=== PATIENT | female | born 2000 | race Caucasian/White ===

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

== ENCOUNTER 2019-03-26 16:07 | Emergency (ER) | payer SELFPAY ==
[~2019-03-26] VITALS: Ht 160 cm; Wt 78.5 kg
[~2019-03-26 16:07] MED LIST changes: +CEPH-264 PO; +ONDA4TAB12 PO
[2019-03-26 16:20] VITALS: BP 133/70
--- NOTE | 2019-03-26 16:36 | PHYS DOC ---
Past Medical History Past Medical History: Anemia, Migraines Past Surgical History: Tonsillectomy Alcohol Use: Rarely Drug Use: Marijuana Adult General Chief Complaint Chief Complaint: TEST HPI HPI Patient is a 19 year old female with upper and lower abdominal pain that comes and goes and is squeezing feeling. Patient states is also a crampy feeling at times. Patient states 2 days ago she vomited once. Patient states she's been eating and drinking as normal. Patient states that she works up she feels that she has heartburn. Patient states she is not taking any medications to help herself feel better. When asked what she ate today she took Motrin which she states before she came in. Patient states that she rates her pain at a 5 out of 10. Patient states she's also been 13 days late on her period. Review of Systems Review of Systems GI: abdominal pain, heart burn, late period, denies nausea, vomiting, bloody stools or diarrhea [] All other systems were reviewed and found to be within normal limits, except as documented in this note. Current Medications Current Medications Current Medications Medications (Trade) Dose Ordered Sig/Raymundo Start Time Stop Time Status Last Admin Dose Admin Famotidine (Pepcid) 20 mg 1X ONCE 03/26/19 16:45 03/26/19 16:46 DC 03/26/19 17:12 20 MG Allergies Allergies Allergies Coded Allergies Type Severity Reaction Last Updated Verified No Known Drug Allergies 05/12/18 No Physical Exam Physical Exam Constitutional: Well developed, well nourished, no acute distress, non-toxic appearance. [] HENT: Normocephalic, atraumatic, bilateral external ears normal, oropharynx moist, no oral exudates, nose normal. [] Eyes: PERRLA, EOMI, conjunctiva normal, no discharge. [] Neck: Normal range of motion, no tenderness, supple, no stridor. [] Cardiovascular:Heart rate regular rhythm, no murmur [] Lungs & Thorax: Bilateral breath sounds clear to auscultation [] Abdomen: Bowel sounds normal, soft, no tenderness, no masses, no pulsatile m asses. [] Skin: Warm, dry, no erythema, no rash. [] Back: No tenderness, no CVA tenderness. [] Extremities: No tenderness, no cyanosis, no clubbing, ROM intact, no edema. [] Neurologic: Alert and oriented X 3, normal motor function, normal sensory function, no focal deficits noted. [] Psychologic: Affect normal, judgement normal, mood normal. Normal Physical Exam[] Current Patient Data Vital Signs Vital Signs Date Time Temp Pulse Resp B/P (MAP) Pulse Ox O2 Delivery O2 Flow Rate FiO2 03/26/19 16:20 98.9 101 16 133/70 (91) 97 Room Air 98.9 Lab Values Laboratory Tests Test 03/26/19 16:08 03/26/19 16:58 Urine Collection Type Unknown Urine Color Yellow Urine Clarity Clear Urine pH 5.0 Urine Specific [place] 1.020 Urine Protein Negative mg/dL (NEG-TRACE) Urine Glucose (UA) Negative mg/dL (NEG) Urine Ketones (Stick) Negative mg/dL (NEG) Urine Blood Negative (NEG) Urine Nitrite Negative (NEG) Urine Bilirubin Negative (NEG) Urine Urobilinogen Dipstick 0.2 mg/dL (0.2 mg/dL) Urine Leukocyte Esterase Negative (NEG) Urine RBC 0 /HPF (0-2) Urine WBC 0 /HPF (0-4) Urine Squamous Epithelial Cells Few /LPF Urine Bacteria Few /HPF (0-FEW) POC Urine HCG, Qualitative Hcg negative (Negative) EKG EKG [] Radiology/Procedures Radiology/Procedures [] Course & Med Decision Making Course & Med Decision Making Abdomen is soft and nontender. Bowel sounds within normal limits. Skin pink warm and dry. Mucous members are moist. Ambulatory with steady gait. Vital signs within normal limits. Alert and oriented. Urinalysis is negative. test is negative. Lungs are clear to auscultation in all lobes. Speaks in full clear sentences.[] She states her stomach is feeling much better after the Pepcid. Patient discharged home with a prescription for Pepcid. Patient is educated his stay a way from fried or spicy foods. Dragon Disclaimer Dragon Disclaimer This electronic medical record was generated, in whole or in part, using a voice recognition dictation system. Departure Departure Impression: Primary Impression: GERD (gastroesophageal reflux disease) Disposition: 01 HOME, SELF-CARE Condition: STABLE Referrals: SAJI WASHINGTON MD (PCP) Patient Instructions: Diet for Gastroesophageal Reflux Disease, Adult Additional Instructions: Follow-up with primary care provider if needed. Drink plenty of fluids. Stay away from fried or spicy foods. Scripts Famotidine (PEPCID) 20 Mg Tablet 20 MG PO BID for 15 Days, #30 TAB Prov: JOON WOODSON APRN 03/26/19 Problem Qualifiers Primary Impression: GERD (gastroesophageal reflux disease) Esophagitis presence: esophagitis presence not specified Qualified Codes: K21.9 - Gastro-esophageal reflux disease without esophagitis JOON WOODSON APRN Mar 26, 2019 16:36
[2019-03-26] MEDS ORDERED: FAMOTIDINE 20 MG TABLET. PO ONE (16:45)
[2019-03-26 17:08] LABS: BILIRUBIN,URINE NEGATIVE (NEG); CLARITY,URINE CLEAR; COLOR,URINE YELLOW; NITRITE,URINE NEGATIVE (NEG); PROTEIN,URINE NEGATIVE (NEG-TRACE); UROBILINOGEN,URINE 0.2 mg/dL (0.2 mg/dL)
[2019-03-26 17:20] LABS: BACTERIA,URINE FEW /HPF (0-FEW); RBC,URINE 0 /HPF (0-2); SQUAMOUS EPITHELIAL CELL,UR FEW /LPF; WBC,URINE 0 /HPF (0-4)
[2019-03-26] MEDS ORDERED: FAMO-63 PO (17:30)
== END 2019-03-26 17:50 | disposition home or self-care (01) ==
LOC: ER 16:07
DX: K21.9 Gastro-esophageal reflux disease without esophagitis (principal); G43.909 Migraine, unspecified, not intractable, without status migrainosus; Z86.2 Personal history of diseases of the blood and blood-forming organs and certain disorders involving the immune mechanism
CPT/HCPCS: 81001; 81025; 99283